=== PATIENT | female | born 1940 | race Caucasian/White ===

== ENCOUNTER → 2016-04-11 | Outpatient (CLI) | payer MEDICARE, OTHER ==
--- NOTE | 2016-04-12 09:08 | MAM ---
EXAM DESCRIPTION: MAMMO BREAST SCREENING BILATERAL CAD, images were reviewed with CAD technology, R2 computer-aided detection. CLINICAL HISTORY: [facility] [employer]. COMPARISON: 2011. FINDINGS: Routine views are obtained. Scattered glandular pattern. No dominant mass, architectural distortion or clustered microcalcification.. IMPRESSION: Benign exam. BIRAD CATEGORY: 2 BENIGN RECOMMENDATIONS: FOLLOW-UP: Routine screening mammogram in one year. According to the [employer], yearly mammograms are recommended starting at age 40 and continuing as long as a woman is in good health. Any breast change noted on a breast self-exam should be reported promptly to the patient's healthcare provider. Breast MRI is recommended for women with an approximately 20-25% or greater lifetime risk of breast cancer, including women with a strong family history of breast or ovarian cancer and women who have been treated for Hodgkin's disease. Electronically signed by: Jessica Ellis 04/12/2016 09:06
== END ==
LOC: MAMMO 10:02
PROVIDERS: ATTEND Family Medicine
DX: Z12.31 Encounter for screening mammogram for malignant neoplasm of breast (principal)
CPT/HCPCS: 77052; G0202

== ENCOUNTER → 2016-11-20 | Outpatient (CLI) | payer MEDICARE, OTHER | END | disposition home or self-care (01) | LOC: GMAB 10:22 | PROVIDERS: ATTEND Family Medicine | DX: E03.9 Hypothyroidism, unspecified (principal) ==

== ENCOUNTER → 2017-01-08 | Outpatient (CLI) | payer MEDICARE, OTHER ==
--- NOTE | 2017-01-08 13:27 | US ---
EXAM DESCRIPTION: Abdomen,Complete: Ultrasound CLINICAL HISTORY: GENERALIZED ABDOMINAL PAIN COMPARISON: Ultrasound liver 08/12/2012. TECHNIQUE: Transabdominal scannin-dimensional and Doppler modes. FINDINGS: The gallbladder is normal in size, shape, and echogenicity, with no intraluminal stones or sludge. No fluid around the gallbladder. Wall thickness normal. 1.4 mm. Common bile duct caliber 3.9 mm which is within normal limits. No stones in the visualized portion of the duct. Not tender with transducer pressure. The liver demonstrates normal echogenicity; 3.2 cm cyst in the left lobe. 2.1 x 1.6 cm cyst in the right lobe. 2.5 x 1.9 cm cyst in the right lobe. 2.0 x 1.9 cm cyst in the right lobe. Contour of the liver capsule is smooth where seen. No fluid around the liver. Intrahepatic biliary ducts are non-dilated. Craniocaudal dimension in the mid-clavicular axis is 15.6 cm. Pancreas head, body, and tail normal in size and echogenicity. Pancreatic duct is not dilated. Normal Doppler vascularity in the daisy hepatis. Abdominal aorta diameter proximal 2.2 cm. Mid 1.7 cm. Distal 1.6 cm. IVC visualized; normal caliber. Spleen normal echogenicity; long axis measurement is 10.5 cm. No fluid in the spleno-renal fossa. Right kidney measures 8.2 x 6.1 x 5.0 cm; mid renal cortical thickness 8 mm. Slightly increased echogenicity of the cortex. . no hydronephrosis, no large calcifications, and no perinephric fluid. Contour smooth. Vascularity normal. Ureter not visualized. Left kidney measures 9.9 x 5.3 x 4.4 cm ; midrenal cortical thickness 10 mm.. Heterogeneously increased cortical Echogenicity . 14 x 13 mm cyst. No hydronephrosis, no large calcifications, and no perinephric fluid. Contour smooth. Vascularity normal. Ureter not visualized. IMPRESSION: 1. Normal ultrasound of the gallbladder, common bile duct, and pancreas. 2. Heterogeneous echogenicity of the liver with multiple cysts in both lobes. Normal intrahepatic ducts and size of the liver. No ascites. 3. Normal ultrasound of the spleen. 4. Bilateral kidneys with increased cortical echogenicity. Bilateral cortical thinning more on the right. No hydronephrosis or perinephric fluid. 14 mm cyst left kidney. Electronically signed by: Jesse Lazo MD 01/08/2017 1:26 PM CDT
== END | disposition home or self-care (01) ==
LOC: US 10:14
PROVIDERS: ATTEND Family Medicine
DX: R10.84 Generalized abdominal pain (principal)

== ENCOUNTER 2017-04-04 05:45 | Day surgery (SDC) | payer MEDICARE, OTHER ==
[2017-04-04] MEDS ORDERED: LACTATED RINGERS 1,000 ML ONE (06:45)
[2017-04-04] MEDS ORDERED: fentaNYL CITRATE INJ 50 MCG/ML AMP ONE (07:54)
[2017-04-04 09:19] VITALS: O2SAT 96
[2017-04-04] MEDS ORDERED: PROPOFOL 200 MG/20 ML VIAL IV ONE (10:00)
[2017-04-04] MEDS ORDERED: LIDOCAINE 1% 10 ML VIAL INJ ONE (10:00)
--- NOTE | 2017-04-04 10:09 | OP ---
DATE OF PROCEDURE: 04/04/17 PREOPERATIVE DIAGNOSIS: 1. History of polyps. Last colonoscopy was 2011. POSTOPERATIVE DIAGNOSIS: 1. Internal hemorrhoids. 2. Diverticulosis. 3. Evidence of prior colon resection. PROCEDURE: 1. Colonoscopy. SURGEON: Efrain Aceves MD. COMPLICATIONS: None apparent. BLOOD LOSS: None. MEDICATIONS: Monitored anesthesia care. DESCRIPTION OF PROCEDURE: Informed consent was obtained prior to sedation. The preprocedure cardiopulmonary assessment was satisfactory. The patient was placed in the left lateral decubitus position and was sedated. A digital rectal exam was unremarkable. The tip of the Olympus colonoscope was inserted in the rectum and guided over to the cecum. The cecum was identified by locating the ileocecal valve and appendiceal orifice. Getting through the sigmoid was challenging because of innumerable diverticulosis. However, once we were through the sigmoid, passage of the scope on over to the cecum was not difficult. Prep was good. The mucosa of the cecum, ascending colon, hepatic flexure, transverse colon, splenic flexure, descending colon and sigmoid colon was closely examined. The patient has evidence of a prior sigmoid resection and she has an unremarkable colorectal anastomosis. There are many uninflamed sigmoid diverticula. There were a few diverticula in the ascending colon as well. There are internal hemorrhoids seen on retroflexed view of the rectum. Otherwise, the colonoscopy is urinalysis. RECOMMENDATIONS: 1. Followup with me in the clinic in one year for her irritable bowel syndrome. 2. She does not need further colonoscopy for colon cancer screening. 3. She is on a fiber supplement and I recommend she continue that. She can also continue her hyoscyamine p.r.n. for irritable bowel syndrome. #[id number] cc: Giorgi Westbrook MD [facility]
[2017-04-04 13:18] VITALS: BP 165/85; TEMP 98
== END 2017-04-04 09:55 | disposition home or self-care (01) ==
LOC: AMB 05:45
PROVIDERS: ATTEND Internal Medicine Gastroenterology
DX: K57.30 Diverticulosis of large intestine without perforation or abscess without bleeding (principal); K64.8 Other hemorrhoids; K58.9 Irritable bowel syndrome, unspecified; I10 Essential (primary) hypertension; J44.9 Chronic obstructive pulmonary disease, unspecified; F17.290 Nicotine dependence, other tobacco product, uncomplicated; Z86.010 Personal history of colon polyps; Z88.2 Allergy status to sulfonamides; Z88.8 Allergy status to other drugs, medicaments and biological substances; Z79.899 Other long term (current) drug therapy
CPT/HCPCS: 00812; 45378; J3010; J3490; J7120

== ENCOUNTER → 2017-04-16 | Outpatient (CLI) | payer MEDICARE, OTHER ==
--- NOTE | 2017-04-18 09:26 | MAM ---
EXAM DESCRIPTION: 3D Screening BILATERAL : Digital Mammography. CLINICAL HISTORY: 77 years Female SCREENING . No complaints. Remote family history of breast cancer. Postmenopausal. Has taken HRT 5 or more years ago. Prior cyst aspiration left breast. COMPARISON: 2-D digital screening bilateral studies 04/11/2016 and 03/29/2015. Report from prior examination also reviewed. TECHNIQUE: Bilateral CC and MLO projection full-field images, 3-D tomosynthesis digital mammographic technique. Also bilateral synthesized CC/ MLO full-field images. CAD not utilized. FINDINGS: The breast parenchymal density pattern is: Almost entirely fatty. No skin thickening or nipple retraction bilateral axillary lymph nodes. Bilateral solitary microcalcifications.. No focal, stellate mass or density, focal asymmetry , and no suspicious microcalcifications bilaterally. Stable mammograms compared to prior studies, taking into account differences in mammographic technique IMPRESSION: BI-RADS CATEGORY: 2 - BENIGN FINDINGS. FOLLOW UP: Routine digital bilateral screening, one year interval from March 2017. Written communication explaining the IMPRESSION and follow-up, will be mailed to the patient and referring health care provider. According to the [employer], yearly mammograms are recommended starting at age 40 and continuing as long as a woman is in good health. Any breast change noted on a breast self-exam should be reported promptly to the patient's healthcare provider. Breast MRI is recommended for women with an approximately 20-25% or greater lifetime risk of breast cancer, including women with a strong family history of breast or ovarian cancer and women who have been treated for Hodgkin's disease. A negative mammographic report should not delay tissue diagnosis in patients with significant clinical history or physical findings. Extremely dense breast tissue limits the sensitivity of digital mammography. Electronically signed by: Jesse Lazo MD 04/18/2017 9:25 AM [facility]
== END ==
LOC: MAMMO 10:00
PROVIDERS: ATTEND Family Medicine
DX: Z12.31 Encounter for screening mammogram for malignant neoplasm of breast (principal)

== ENCOUNTER → 2017-11-29 | Outpatient (CLI) | payer MEDICARE, OTHER | LOC: GMAE 11:45 | PROVIDERS: ATTEND Family Medicine | DX: E03.9 Hypothyroidism, unspecified (principal) ==

== ENCOUNTER → 2017-12-20 | Outpatient (CLI) | payer MEDICARE, OTHER ==
--- NOTE | 2017-12-20 20:00 | CT ---
Procedure: CT LUNG SCREENING Exam Date: 12/20/2017. Ordering Provider: Amos Larson Clinical Indication: NICOTINE DEPENDENCE This patient meets eligibility criteria for low-dose CT lung cancer screening. Comparison: CT scan of the chest with IV contrast 06/26/2013. Technique: Using a multislice scanner, sequential helical axial imaging was obtained in the thorax, 2.5 mm thickness, 2.5 mm separation, from the level of the thoracic inlet through the lung bases without IV contrast. A low dose protocol was utilized. CTDI: 1.75 mGy. 120. kVp. 45 mA. 2D sagittal and coronal reconstructed images, 6.0 mm thickness, were obtained. This exam was performed according to our departmental dose optimization program which includes use of automated exposure control, adjustment of the mA and/or kV according to patient size and/or use of iterative reconstruction technique. FINDINGS: Lungs and large airways: Nodules less than 3 mm associated with the posterior horizontal fissure on series 2, images 54 and 55. Similar size nodules associated with the right major fissure posterior to the knee right middle lobe on images 57 and 58. 3 mm groundglass nodule in the posterior subpleural right lower lobe on image 98. 2 and 3 mm subpleural groundglass nodules posteriorly and laterally in the left lower lobe. Small dilated airspaces in the bilateral upper lobes. Decreased volume in the left lower lobe compared to the right.. Pleura: Bilateral apical pleural thickening more severe left and right showing no significant change since the prior study. No pleural effusion or pneumothorax bilaterally. Mediastinum and london: Evaluation of soft tissue Limited due to lack of IV contrast and screening technique. No large soft tissue masses, largest lymph nodes, fluid or air. Heart and great vessels: Atherosclerotic calcification of the proximal brachiocephalic vessels aortic arch and descending thoracic aorta. Coronary artery calcifications. Chest wall, lower neck, axillae: Evaluation limited due to lack of IV contrast and screening technique. Symmetric appearance of the chest wall and axilla. No findings in the lower neck with thyroid gland not well seen.. Upper abdomen: Included peritoneal space with no fluid or free air. Included organs unremarkable with atherosclerotic calcifications. Bones: Evaluation limited due to MIP technique. Compression type vertebral body fracture anterior end central T9 vertebral body with minimal retropulsion. No destructive or lytic bone lesions. IMPRESSION: Mild emphysematous changes in the lungs. Nodules in the subpleural regions and associated with pleural and fissures bilaterally. Unable to compare to prior study due to thicker scan sections on the prior study. No clinically significant nodules masses or infiltrates. No pleural effusion or pneumothorax. Stable bilateral apical pleural thickening since the prior study. Lung RADS category Category 1 - No nodule or definitely benign nodules (probability of malignancy less than 1%). Follow-up: Continue annual screening with Low Dose Chest CT in 12 months. Electronically signed by: Jesse Lazo MD 12/20/2017 7:59 PM CDT
== END ==
LOC: CT 10:00
PROVIDERS: ATTEND Family Medicine
DX: Z87.891 Personal history of nicotine dependence (principal)

== ENCOUNTER → 2018-05-09 | Outpatient (CLI) | payer MEDICARE, OTHER ==
--- NOTE | 2018-05-10 15:11 | MAM ---
EXAM DESCRIPTION: 3D Screening BILATERAL : Digital Mammography. CLINICAL HISTORY: 78 years Female SCREENING . No complaints. No personal or family history of breast cancer. Childbirth. Postmenopausal 48 years. No HRT. Bilateral breast procedures benign. Lifetime risk of developing breast cancer (Tyrer-Cuzick model)(%): 3.6. COMPARISON: Bilateral screening digital breast tomosynthesis 04/16/2017. TECHNIQUE: Bilateral CC and MLO projection full-field images, digital tomosynthesis mammographic technique. Bilateral digital 2-D full-field MLO images. CAD not available for tomosynthesis or 2-D images. FINDINGS: The breast parenchymal density pattern is: Almost entirely fatty. No skin thickening or nipple retraction. Bilateral axillary lymph nodes. Bilateral solitary microcalcifications. No new focal, stellate mass or density, focal asymmetry , and no suspicious microcalcifications bilaterally. Stable mammograms compared to prior study. IMPRESSION: Benign exam. BIRAD CATEGORY: 2 BENIGN FINDINGS. RECOMMENDATIONS: FOLLOW UP: Routine digital bilateral mammographic screening, one year interval from April 2018. Written communication explaining the IMPRESSION and follow-up, will be mailed to the patient and referring health care provider. According to the [employer], yearly mammograms are recommended starting at age 40 and continuing as long as a woman is in good health. Any breast change noted on a breast self-exam should be reported promptly to the patient's healthcare provider. Breast MRI is recommended for women with an approximately 20-25% or greater lifetime risk of breast cancer, including women with a strong family history of breast or ovarian cancer and women who have been treated for Hodgkin's disease. A negative mammographic report should not delay tissue diagnosis in patients with significant clinical history or physical findings. Extremely dense breast tissue limits the sensitivity of digital mammography. Electronically signed by: Jesse Lazo MD 05/10/2018 3:08 PM [facility] [employer]
== END ==
LOC: MAMMO 04-25 11:00
PROVIDERS: ATTEND Family Medicine
DX: Z12.31 Encounter for screening mammogram for malignant neoplasm of breast (principal)

== ENCOUNTER → 2018-06-24 | Outpatient (CLI) | payer MEDICARE, OTHER ==
--- NOTE | 2018-06-24 12:59 | CT ---
EXAM DESCRIPTION: Abdomen/Pelvis w/Contrast: Computed Tomography. CLINICAL HISTORY: 78 years Female PERIUMBILICAL PAIN. Tender to touch. Bloated. Constipation. COMPARISON: CT scan the abdomen with and without contrast 09/02/2008. TECHNIQUE: Spiral-axial scans at 5 x 5 mm intervals through the abdomen and pelvis, after nonionic IV contrast and water-soluble oral contrast. Axial 2.5 mm reconstructions. Coronal and sagittal 2.0 mm reconstructions. No delayed scans. No adverse reactions. Total Exam DLP: 537.8 mGy-cm. This exam was performed according to our departmental dose-optimization program which includes automated exposure control, adjustment of the mA and/or kV according to patient size and/or use of iterative reconstruction technique; to reduce radiation dose to as low as reasonably achievable (ALARA). FINDINGS: Lung bases and pleura: Negative. Liver, Stomach, Spleen, Adrenal Glands: Multiple subcapsular cyst lateral segment of the left hepatic lobe and also subcapsular cysts in the mid and inferior right hepatic lobe. Stable. Small hiatal hernia. Other solid organs negative. Pancreas, Gallbladder, Ducts: Gallbladder visualized. Ducts and pancreas negative. Kidneys and Ureters: Unremarkable. Mesentery: No fatty stranding or fascial thickening. No free air or fluid. Aorta: Moderate atherosclerotic calcification and intimal wall thickening. Ectasia proximally and narrowing distally but no significant narrowing. Also calcification of the major branch vessels. Small Bowel: Normal caliber. Terminal Ileum/Cecum: Minimally distended by fecal matter. Terminal ileum unremarkable. Appendix normal caliber. Normal density of the surrounding fat. Colon: Redundant transverse colon. Moderate distention by fecal matter throughout the entire colon. No significant air-fluid levels. Scattered diverticula with no complications.. Pelvic Organs: Minimal fluid left adnexa. Vaginal cuff unremarkable. Urinary bladder decompressed. Spine and Bony Pelvis: Minimal spondylosis upper thoracic spine L5-S1. Concavity of the superior T12 endplate with sclerosis and minimal retropulsion of the endplate approximately 2 mm. No large paravertebral mass. Abdominal Wall/Back Soft Tissues: Minimal diastases at the umbilicus with minimal anterior wall bulge of transverse colon into the defect but not incarcerated or strangulated. No colonic obstruction. IMPRESSION: 1. Moderate constipation throughout the entire colon but no significant air-fluid levels. No pericolonic inflammatory changes. No ascites. 2. Minimal protrusion of a short segment of anterior transverse colon wall into a defect at the umbilicus but no obstruction, no incarceration, strangulation, no soft tissue mass or abnormal enhancement. 3. Minimal fluid in the left adnexa but no soft tissue mass. 4. Depression of the superior T12 endplate with retropulsion and sclerosis inferior to the endplate in the vertebral body. Unknown age of disc compression injury. Correlate with clinical findings.. Electronically signed by: Jesse Lazo MD 06/24/2018 12:56 PM CDT
== END ==
LOC: CT 11:17
PROVIDERS: ATTEND Family Medicine
DX: R10.33 Periumbilical pain (principal); K59.00 Constipation, unspecified

== ENCOUNTER → 2018-12-23 | Outpatient (CLI) | payer MEDICARE, OTHER ==
--- NOTE | 2018-12-23 17:39 | CT ---
Procedure: CT LUNG SCREENING Exam Date: 12/23/2018 Ordering Provider: Amos Larson Clinical Indication: PERSONAL HISTORY OF TOBACCO DEPENDENCE smoking cessation x6 years. 75 pack years history. This patient meets eligibility criteria for low-dose CT lung cancer screening. Comparison: Low-dose CT lung cancer screening, 12/20/2017 Technique: Using a multislice scanner, sequential helical axial imaging was obtained in the thorax, 2.5 mm thickness, 2.5 mm separation, from the level of the thoracic inlet through the lung bases without IV contrast. A low dose protocol was utilized for BMI less than 30: BMI: 29. CTDI: 1.76 mGy. 120. kVp. 45 mA. DLP 63.25 mGy-centimeters. 2D sagittal and coronal reconstructed images, 6.0 mm thickness, were obtained. This exam was performed according to our departmental dose optimization program which includes use of automated exposure control, adjustment of the mA and/or kV according to patient size and/or use of iterative reconstruction technique. Nodule measurements under 10 mm are given as mean value of 3 axes diameters. FINDINGS: Lungs and large airways: Scarring in the bilateral apices associated with pleural thickening is stable. Small nodules 3 mm and less again noted in the inferior right upper lobe subpleural location and associated with the horizontal fissure. Also para fissural nodules associated with the horizontal and right major fissure. 2 mm subpleural nodule lateral superior segment left lower lobe stable. Perifissural nodules 3 mm and less associated with the left major fissure. Stable 2 to 3 mm groundglass nodules superior segment and lateral and basilar segments left lower lobe. Pleura and space: Multiple areas of pleural thickening especially bilateral apices right more than left with no thickening or effusion. Mediastinum and london: evaluation limited by low dose technique and lack of IV contrast. Stable lymph nodes with no new dominant masses. Heart and great vessels: Coronary artery calcifications again seen also atherosclerotic calcifications brachiocephalic vessels and aorta. Chest wall, lower neck, axillae: Evaluation also limited by same factors as described above. Unchanged. Upper abdomen: Evaluation limited by low-dose technique. Multiple subcapsular cyst again seen in the right and left lobes of the liver. Normal size and density of adrenal glands and included spleen. No free fluid or free air. Osseous structures: Evaluation limited by low dose MIP technique. Decreased bone density spondylosis and scoliosis in the thoracic spine with stable compression fracture at T9 and no lytic or blastic lesions. T12 IMPRESSION: 1. Stable bilateral solid and groundglass nodules 3 mm diameter and less with multiple tiffanie-Fissural nodules. No new or abnormal nodules, or masses. No focal infiltrates. Stable centrilobular type emphysema more prevalent in the upper lung nixon[employer] Best Practice recommendations: Please see below for Lung RADS category and FOLLOW-UP.* *Lung RADS category CATEGORY 2- Nodules with a very low likelihood (less than 1%) of becoming a clinically active cancer due to size or lack of growth. Nodules: Perifissural nodule(s) < 10 mm. (526mm3). Solid or part solid nodule(s) less than 6mm (113.1 mm3), new solid nodule less than 4mm (33.5 mm3). Ground glass nodule(s) less than 30mm (05553.2 mm3) or unchanged or slow growing ground glass nodule 30mm or greater. Cat 3 or 4 nodule unchanged for 3 or more months. FOLLOW-UP: Continue annual screening with a Low Dose Chest CT in 12 months for re-evaluation. 2. Stable hepatic cysts. Electronically signed by: Jesse Lazo MD 12/23/2018 5:38 PM CDT
== END ==
LOC: CT 09:51
PROVIDERS: ATTEND Family Medicine
DX: Z87.891 Personal history of nicotine dependence (principal); R91.8 Other nonspecific abnormal finding of lung field

== ENCOUNTER → 2019-02-03 | Outpatient (CLI) | payer MEDICARE, OTHER | LOC: GMAE 10:44 | PROVIDERS: ATTEND Family Medicine | DX: E03.9 Hypothyroidism, unspecified (principal); I10 Essential (primary) hypertension ==

== ENCOUNTER → 2019-03-31 | Outpatient (CLI) | payer MEDICARE, OTHER | LOC: SL 19:00 | PROVIDERS: ATTEND Family Medicine | DX: G47.33 Obstructive sleep apnea (adult) (pediatric) (principal); I10 Essential (primary) hypertension; G47.9 Sleep disorder, unspecified; G47.00 Insomnia, unspecified ==

== ENCOUNTER → 2019-05-13 | Outpatient (CLI) | payer MEDICARE, OTHER ==
--- NOTE | 2019-05-15 14:43 | MAM ---
EXAM DESCRIPTION: 3D Screening BILATERAL : Digital Mammography. CLINICAL HISTORY: 79 years Female ANNUAL SCREENING . No complaints or personal history of breast cancer. Remote family history of breast cancer. Menarche age 13. Childbirth age 20. Menopause age 35. No HRT. Lifetime risk of developing breast cancer (Tyrer-Cuzick model)(%): 4.3. COMPARISON: Bilateral screening digital breast tomosynthesis April 2018 and March 2017. TECHNIQUE: Bilateral CC and MLO projection full-field images, digital tomosynthesis mammographic technique. Bilateral digital 2-D full-field MLO images. CAD available for 2-D images. FINDINGS: The breast parenchymal density pattern is: Scattered areas of fibroglandular density. No skin thickening or nipple retraction. Bilateral skin mole markers. Solitary microcalcifications. Intramammary lymph nodes. No new focal, stellate mass or density, focal asymmetry , and no suspicious microcalcifications bilaterally. Stable mammograms compared to prior study. IMPRESSION: Benign exam. BIRAD CATEGORY: 2 BENIGN FINDINGS. RECOMMENDATIONS: FOLLOW UP: Routine digital bilateral mammographic screening, one year interval from April 2019. Written communication explaining the IMPRESSION and follow-up, will be mailed to the patient and referring health care provider. According to the [employer], yearly mammograms are recommended starting at age 40 and continuing as long as a woman is in good health. Any breast change noted on a breast self-exam should be reported promptly to the patient's healthcare provider. Breast MRI is recommended for women with an approximately 20-25% or greater lifetime risk of breast cancer, including women with a strong family history of breast or ovarian cancer and women who have been treated for Hodgkin's disease. A negative mammographic report should not delay tissue diagnosis in patients with significant clinical history or physical findings. Extremely dense breast tissue limits the sensitivity of digital mammography. Electronically signed by: Jesse Lazo MD 05/15/2019 2:41 PM [employer]
== END ==
LOC: MAMMO 11:00
PROVIDERS: ATTEND Family Medicine
DX: Z12.31 Encounter for screening mammogram for malignant neoplasm of breast (principal)

== ENCOUNTER → 2020-01-01 | Outpatient (CLI) | payer MEDICARE, OTHER ==
--- NOTE | 2020-01-02 15:19 | CT ---
Procedure: CT LUNG SCREENING Exam Date: January 01, 2020. Ordering Provider: Amos Larson Clinical Indication: PERSONAL HISTORY OF TOBACCO ABUSE cigarette smoking cessation for 7 years. No known pack years. Currently smoking E-cigarettes. This patient meets eligibility criteria for low-dose CT lung cancer screening. Comparison: Low-dose CT scan lungs for screening November 2018. Lung RADS category 2. Technique: Using a multislice scanner, sequential helical axial imaging was obtained in the thorax, 2.5 mm thickness, 2.5 mm separation, from the level of the thoracic inlet through the lung bases without IV contrast. A low dose protocol was utilized for BMI less than 30: BMI: 26.5. CTDI: 1.76 mGy. 120. kVp. 45 mA. DLP 63 mGy-cm. 2D sagittal and coronal reconstructed images, 6.0 mm thickness, were obtained. This exam was performed according to our departmental dose optimization program which includes use of automated exposure control, adjustment of the mA and/or kV according to patient size and/or use of iterative reconstruction technique. Nodule measurements under 10 mm are given as mean value of 3 axes diameters. FINDINGS: Lungs and large airways: Scattered parenchymal blebs in a centrilobular distribution. Subpleural blebs and bulla also seen. Perihilar peribronchial wall thickening minimal bilaterally. Stable volume loss left lower lobe. Bilateral regions of pleural parenchymal scarring unchanged. No new nodules and no mass. No acute or new infiltrate. Pleura and space: No calcifications. Marked thickening especially in the apices and upper lobes bilaterally. Stable. No acute process. Mediastinum and [place]: evaluation limited by low dose technique and lack of IV contrast. No enlarged lymph nodes or dominant soft tissue mass. Heart and great vessels: Atherosclerotic calcifications in several brachiocephalic vessels aortic arch and descending thoracic aorta with proximal aortic ectasia stable. Stable coronary artery calcifications right and left. Chest wall, lower neck, axillae: Evaluation also limited by same factors as described above. Normal size axillary nodes, otherwise unremarkable. Upper abdomen: Evaluation limited by low-dose technique. Multiple subcapsular hepatic cysts, right and left lobes. Atherosclerotic calcifications. Normal size and density of the adrenal glands and spleen. No free air or free fluid in the included intraperitoneal space. Osseous structures: Evaluation limited by low dose MIP technique: shoulder and sternoclavicular Arthrosis. IMPRESSION: 1. Emphysematous changes bilaterally. Bilateral pleural thickening mostly in the apices. No abnormal nodules and no mass. No new or focal infiltrate.. [facility] Best Practice Recommendations: please see below for Lung RADS category and FOLLOW-UP.* Category 1 - No nodule or definitely benign nodules (probability of malignancy less than 1%). Follow-up: Continue annual screening with Low Dose Chest CT in 12 months. Electronically signed by: Jesse Lazo MD 01/02/2020 3:17 PM CDT
== END ==
LOC: CT 09:00
PROVIDERS: ATTEND Family Medicine
DX: Z87.891 Personal history of nicotine dependence (principal); J43.9 Emphysema, unspecified; J92.9 Pleural plaque without asbestos; Z12.2 Encounter for screening for malignant neoplasm of respiratory organs

== ENCOUNTER → 2020-02-05 | Outpatient (CLI) | payer MEDICARE, OTHER | LOC: GMAE 11:39 | PROVIDERS: ATTEND Family Medicine | DX: E03.9 Hypothyroidism, unspecified (principal); I10 Essential (primary) hypertension; E78.2 Mixed hyperlipidemia ==